=== PATIENT | female | born 1965 | race Caucasian/White ===

== ENCOUNTER → 2017-06-03 08:48 | Outpatient (POV) | payer BC, SELFPAY | PROVIDERS: Visit Provider Internal Medicine | DX: Z00.00 Encounter for general adult medical examination without abnormal findings (principal) ==

== ENCOUNTER → 2017-07-10 09:51 | Outpatient (CLI) | payer BC, SELFPAY ==
[2017-07-10 11:04] VITALS: PULSE 76
[2017-07-10 11:37] VITALS: BP 95/67; PULSE 81; RESP 16; O2SAT 98
[2017-07-10 11:38] VITALS: BP 108/69; PULSE 97; RESP 20; O2SAT 95
== END ==
PROVIDERS: PCP Nurse Practitioner; Visit Provider Internal Medicine
DX: J96.12 Chronic respiratory failure with hypercapnia (principal); J44.9 Chronic obstructive pulmonary disease, unspecified
CPT/HCPCS: 94060; 94618; 94640; 94726; 94729

== ENCOUNTER 2017-07-22 10:02 | Outpatient (RCR) | payer BC, SELFPAY | END 2017-07-22 10:03 | disposition home or self-care (01) | LOC: PT 10:02 | PROVIDERS: PCP Nurse Practitioner; Visit Provider Nurse Practitioner Family | DX: J44.9 Chronic obstructive pulmonary disease, unspecified (principal) | CPT/HCPCS: G0424 ==

== ENCOUNTER 2017-12-17 11:27 | Outpatient (RCR) | payer BC, SELFPAY | END 2017-12-17 11:28 | disposition home or self-care (01) | LOC: PT 11:27 | PROVIDERS: Visit Provider Orthopaedic Surgery | DX: S82.61XA Displaced fracture of lateral malleolus of right fibula, initial encounter for closed fracture (principal) | CPT/HCPCS: 97760 ==

== ENCOUNTER → 2017-12-31 09:47 | Outpatient (CLI) | payer BC, SELFPAY ==
--- NOTE | 2017-12-31 09:48 | XR_ITS ---
XR ankle RT min 3V Ordering Physician: Jan Fischer MD Patient Age: 52 years: Female HISTORY: ITS.REASON: fracture of lateral mallelous right ankle/ TECHNIQUE: 3 view right ankle COMPARISON :Fall. Injury. Follow-up from 12/15/2017 FINDINGS . We again see the fracture at tip of the lateral malleolus.. Mild avulsion of the tip of lateral malleolus yields trace 1.2 mm distraction at the fracture zone laterally. There is prominent soft tissue swelling again seen overlying the lateral malleolus.No significant change in position of fracture elements at lateral malleolus. Also question possible very subtle fracture at the lateral posterior corner of the talus. If desire further evaluation here CT or MR ankle may be of benefit Small plantar calcaneal spur 4.5 mm length IMPRESSION: Fracture to the lateral malleolus. Stable. Unchanged. Associated soft tissue swelling Question, suspect a very subtle fracture or osteochondral irregularity at the lateral dome of talus,, near lateral corner of talus. A desire further evaluation here CT or MRI would be warranted.
== END ==
PROVIDERS: PCP Nurse Practitioner; Visit Provider Orthopaedic Surgery
DX: S82.891A Other fracture of right lower leg, initial encounter for closed fracture (principal)
CPT/HCPCS: 73610

== ENCOUNTER → 2018-01-28 13:15 | Outpatient (CLI) | payer BC, SELFPAY ==
--- NOTE | 2018-01-28 13:17 | XR_ITS ---
XR ankle RT min 3V HISTORY: Follow-up fracture, pain ITS.REASON: fracture of lateral mallelous rt ankle/out of boot ORDERING PHYSICIAN: Latha Sanford MD PATIENT AGE: 52 years Comparison: 12/31/2017 FINDINGS: Avulsion fracture once again noted involving the tip of the lateral malleolus with mild distraction of the fracture fragments of 1 to 2 mm. Cortical irregularity once again noted involving the lateral aspect of the talus suggesting a nondisplaced fracture. This could be confirmed with CT if clinically warranted. There is also suggestion of a small avulsion fracture involving the medial aspect of the talus inferior to the tip of the medial malleolus. Mild osteoarthritic changes are present at the tibiotalar joint. IMPRESSION: Overall no change avulsion fracture of the tip of the lateral malleolus and medial aspect of the talus as well as possible nondisplaced fracture of the talar dome laterally
== END ==
PROVIDERS: PCP Nurse Practitioner; Visit Provider Orthopaedic Surgery
DX: S82.61XA Displaced fracture of lateral malleolus of right fibula, initial encounter for closed fracture (principal)
CPT/HCPCS: 73610

== ENCOUNTER → 2018-01-29 10:48 | Outpatient (CLI) | payer BC, SELFPAY ==
--- NOTE | 2018-01-29 10:49 | CA_ITS ---
PROCEDURE: 2-D M-mode and color Doppler study INDICATIONS FOR THE TEST: Chest pain COPD Heart Murmur Tobacco Smoking Palpitations Fatigue Syncope Edema Hypertension+Diabetes Mellitus Rheumatic Fever SOB CHERRY Obesity Hyperlipidemia + Family History HD Additional History PULMONARY HTN PATIENT INFORMATION HEIGHT: 63 WEIGHT:206 GENDER: Female B/P:106/65 2-D/M-MODE INTERPRETATION: 2-D MEASUREMENTS OBSERVED VALUES IN CMS Right Ventricular Dimension (RVDd) 2.3 Interventricular Septum (Thickness)(IVsd) 1.3 Left Ventricular Internal Dimensions(LVIDd) 5.2 Left Ventricular Posterior Wall (Thickness)(LVPWd) 0.9 Aortic Root 3.3 Aortic Cusp Separation 1.9 Left Atrial Dimensions (LAD) 3.8 2D 1. Left atrium is mildly enlarged, left ventricle is normal size, mild concentric left ventricular hypertrophy, visually estimated ejection fraction 55% with no regional wall motion abnormality. 2. The right atrium and right ventricle are normal size and contractility. 3. The aortic valve is minimally thickened and fibrosed. 4. The mitral and tricuspid valve are grossly normal. 5. The pulmonic valve is poorly visualized. 6. No significant pericardial effusion noted. DOPPLER INTERROGATION: Doppler interrogation of the aortic, mitral and tricuspid valvular presence of mild mitral and tricuspid regurgitation, tricuspid regurgitation jet velocity is inadequate for calculation of the right ventricular systolic pressure. Grade 1 diastolic dysfunction seen without tissue Doppler evidence of raised left atrial pressure. CONCLUSION: 1. Mildly enlarged left atrium, normal left ventricular size, mild concentric left ventricular hypertrophy, visually estimated ejection fraction of 55% with no regional wall motion abnormality. Grade 1 diastolic dysfunction seen without tissue Doppler evidence of raised left atrial pressure. 2. Mild mitral and tricuspid regurgitation 3. No significant pericardial effusion noted.
== END ==
PROVIDERS: PCP Nurse Practitioner; Visit Provider Internal Medicine Cardiovascular Disease
DX: E78.5 Hyperlipidemia, unspecified (principal); G47.33 Obstructive sleep apnea (adult) (pediatric); I11.9 Hypertensive heart disease without heart failure; I27.20 Pulmonary hypertension, unspecified; S82.61XA Displaced fracture of lateral malleolus of right fibula, initial encounter for closed fracture
CPT/HCPCS: 93306

== ENCOUNTER → 2018-04-07 13:13 | Outpatient (POV) | payer BC, MEDICARE, SELFPAY | PROVIDERS: Visit Provider Internal Medicine | DX: Z00.00 Encounter for general adult medical examination without abnormal findings (principal) ==

== ENCOUNTER → 2020-11-01 12:57 | Outpatient (CLI) | payer BC, SELFPAY ==
--- NOTE | 2020-11-01 14:28 | CT_ITS ---
PROCEDURE: CT LUNG SCREENING CLINICAL INDICATION: lung cancer screening COMPARISON: CT [facility]WO CT CHEST W/O CONTRAST from 09/25/2016 TECHNIQUE: The exam was performed on a GE Light Speed [address] scanner using 2.90 mGy CTDI. A low dose helical CT CHEST was performed on a multi-detector scanner. All CT scans at the facility use one or more dose reduction, viz: automated exposure control, ma/kV adjustment per patient size (including targeted exams where dose is matched to indication, i.e. head), or iterative reconstruction technique. The LDCT was performed in a facility that meets the criteria for the screening program. Data regarding this exam was submitted to ACR which is an approved registry. The order for this exam indicates that it came as a result of a lung cancer screening counseling shard decision-making visit that included all the elements required of such a visit including smoking cessation. The radiologist interpreting this exam meets the [facility] criteria for the LDCT lung cancer screening program. The exam is reported using the Lung-RADS classification scale and reported to the ACR registry. NOTE: This study was performed for the specific purposes of lung cancer screening and is not an alternative to diagnostic chest CT. RADIATION DOSE: CTDI vol(CT dose Index-volume) = 2.90mG DLP (Dose Length Product) = 95.86 mGcm FINDINGS: COPD changes. Scattered areas of scarring. Evidence of old granulomatous disease. 5 x 3 mm noncalcified nodule left upper lobe anteriorly 30 very slightly larger compared to the previous exam at approximately 4 x 2 mm. OTHER FINDINGS: Mild prominence of the left adrenal gland only slightly more prominent compared to the previous exam. IMPRESSION: Lung-RADS Category 3 Probably Benign regarding left upper lobe nodule which is very slightly increased in size. Suggest [address] follow-up. Follow-up: [address] Chest with contrast. Dictated by: Kike Gorman MD 11/06/2020 09:39 Kike Gorman MD in [place] 11/06/2020 09:39
[2020-11-03 09:32] LABS: Alpha-1-Antitrypsin 131 mg/dL (101-187)
== END ==
PROVIDERS: PCP Nurse Practitioner Family; Visit Provider Internal Medicine Pulmonary Disease
DX: Z87.891 Personal history of nicotine dependence (principal); Z12.2 Encounter for screening for malignant neoplasm of respiratory organs; R06.00 Dyspnea, unspecified
CPT/HCPCS: 36415; 71271; 82103; 94060; 94618; 94726; 94729

== ENCOUNTER → 2020-11-01 14:56 | Outpatient (CLI) | payer BC, SELFPAY | PROVIDERS: Visit Provider Internal Medicine Pulmonary Disease | DX: J44.9 Chronic obstructive pulmonary disease, unspecified (principal) | CPT/HCPCS: 36415; 82103 ==

== ENCOUNTER → 2021-04-16 09:27 | Outpatient (CLI) | payer BC, SELFPAY ==
[2021-04-16 09:53] LABS: Basophils # 0.1 K/mm3 (0-0.2); Basophils % 1.1 % (0.1-2.0); Eosinophils # 0.1 K/mm3 (0.0-0.4); Eosinophils % 0.8 % (0.1-12.0); Hematocrit 49.8 % (37.0-47.0); Hemoglobin 15.7 g/dL (12.2-16.2); Lymphocytes # 1.6 K/mm3 (0.7-4.5); Lymphocytes % 17.5 % (10-50); Mean Corpuscular HGB Conc 31.4 g/dL (31.8-35.4); Mean Corpuscular Hemoglobin 32.5 pg (27.0-31.2); Mean Corpuscular Volume 103.4 fl (81-99); Mean Platelet Volume 8.1 fl (7.4-10.4); Monocytes # 0.4 K/mm3 (0.1-1.0); Monocytes % 4.4 % (1.7-9.3); Neutrophils # 6.7 K/mm3 (1.8-7.8); Neutrophils % 76.1 % (37.0-80.0); Platelet Count 307 K/mm3 (142-424); Red Blood Count 4.82 M/mm3 (4.20-5.40); Red Cell Distribution Width 13.8 % (11.5-17.5); White Blood Count 8.8 K/mm3 (4.8-10.8)
[2021-04-16 10:29] LABS: Alanine Aminotransferase 52 U/L (12-78); Albumin Level 4.8 g/dl (3.5-5.0); Alkaline Phosphatase 56 U/L (38-126); Anion Gap 13.4 mEq/L (5-15); Aspartate Amino Transferase 45 U/L (14-36); Bilirubin,Direct 0.1 mg/dl (0.0-0.4); Bilirubin,Indirect 0.3 mg/dL (0.0-0.9); Bilirubin,Total 0.4 mg/dl (0.2-1.3); Bilirubin,Unconjugated 0.3 mg/dL (0.0-1.1); Blood Urea Nitrogen 19 mg/dl (7-17); Calcium 9.9 mg/dl (8.4-10.2); Carbon Dioxide 37 mmol/L (22.0-30.0); Chloride 95 mmol/L (98-107); Chol/HDL Ratio 2.2 (1-3.5); Cholesterol 217 mg/dl (140-200); Estimated Glomerular Filt Rate 87 ml/min (>60); GFR (African American) 105 ML/MIN (>60); Glucose 106 mg/dl (74-100); HDL Cholesterol 98 mg/dl (40-60); Potassium 4.4 mmoL/L (3.5-5.1); Sodium 141 mmol/L (136-145); Total Protein,Serum 7.2 g/dl (6.3-8.2); Triglycerides 67 mg/dl (30-150); VLDL Cholesterol 13 mg/dL (0-40)
[2021-04-16 10:40] LABS: Direct LDL Cholesterol 111.25 mg/dL (100-129)
[2021-04-16 10:46] LABS: Free T4 (Free Thyroxine) 1.16 ng/dl (0.78-2.19)
[2021-04-16 11:00] LABS: Thyroid Stimulating Hormone 1.07 uIU/mL (0.465-4.68)
== END ==
PROVIDERS: PCP Family Medicine; Visit Provider Internal Medicine
DX: I27.20 Pulmonary hypertension, unspecified (principal); I11.9 Hypertensive heart disease without heart failure; E78.2 Mixed hyperlipidemia; G47.33 Obstructive sleep apnea (adult) (pediatric); Z99.89 Dependence on other enabling machines and devices
CPT/HCPCS: 36415; 80048; 80061; 80076; 84439; 84443; 85025

== ENCOUNTER → 2021-11-02 07:45 | Outpatient (CLI) | payer BC, SELFPAY ==
--- NOTE | 2021-11-02 07:45 | CT_ITS ---
FINAL REPORT TECHNIQUE: Axial images were obtained from the lung apex to the mid abdomen by computed tomography. This study was performed with techniques to keep radiation doses as low as reasonably achievable (ALARA). Individualized dose reduction techniques using automated exposure control or adjustment of mA and/or kV according to the patient's size were employed. CLINICAL HISTORY: lung cancer screening, former smoker, quit x 6 years ago, smoked 2 pks per day x 36 yrs COMPARISON: 11/01/2020 FINDINGS: CHEST CT LOW DOSE CTDI vol (mGy): 2.90 DLP (mGy-cm): 101.34 There is no axillary adenopathy. There is no hilar or mediastinal adenopathy. The heart is normal in size. There is no pericardial or pleural effusion. There are scattered calcified granulomas. There is mild emphysema and mild scarring. There is a 5 mm nodule in the anterior left upper lobe which is stable and best seen on image number 34. There is a stable 5 mm nodule in the posterior left lower lobe. No new mass or nodule is identified. Limited images of the upper abdomen of the head and upper demonstrate fatty infiltration of the liver. IMPRESSION: Nodules in the left upper and left lower lobes, stable. Lung RADS category 2. Recommend 12 month follow-up low-dose chest CT. Reviewed, Interpreted and Dictated by Mohan El III, MD Transcribed by Viri Garcia Authenticated and . [facility]
== END ==
PROVIDERS: PCP Family Medicine; Visit Provider Internal Medicine Pulmonary Disease
DX: Z87.891 Personal history of nicotine dependence (principal); Z12.2 Encounter for screening for malignant neoplasm of respiratory organs
CPT/HCPCS: 71271

== ENCOUNTER → 2022-04-15 09:20 | Outpatient (CLI) | payer BC, SELFPAY ==
[2022-04-15 10:08] LABS: Basophils % 0.3 % (0.1-2.0); Eosinophils # 0.1 K/mm3 (0.0-0.4); Eosinophils % 1.2 % (0.1-12.0); Hematocrit 40.1 % (37.0-47.0); Hemoglobin 12.6 g/dL (12.2-16.2); Lymphocytes % 27.6 % (10-50); Mean Corpuscular HGB Conc 31.5 g/dL (31.8-35.4); Mean Corpuscular Hemoglobin 31.3 pg (27.0-31.2); Mean Corpuscular Volume 99.4 fl (81-99); Monocytes # 0.4 K/mm3 (0.1-1.0); Monocytes % 5.4 % (1.7-9.3); Neutrophils # 4.7 K/mm3 (1.8-7.8); Neutrophils % 65.5 % (37.0-80.0); Platelet Count 367 K/mm3 (142-424); Red Blood Count 4.04 M/mm3 (4.20-5.40); Red Cell Distribution Width 13.1 % (11.5-17.5); White Blood Count 7.2 K/mm3 (4.8-10.8)
[2022-04-15 10:40] LABS: Chloride 101 mmol/L (98-107)
[2022-04-15 10:41] LABS: Potassium 4.6 mmoL/L (3.5-5.1); Sodium 139 mmol/L (136-145)
[2022-04-15 10:43] LABS: Alanine Aminotransferase 57 U/L (12-78); Albumin Level 4.1 g/dl (3.5-5.0); Alkaline Phosphatase 50 U/L (38-126); Anion Gap 7.6 mEq/L (5-15); Aspartate Amino Transferase 46 U/L (14-36); Bilirubin,Direct 0.2 mg/dl (0.0-0.4); Bilirubin,Indirect 0.1 mg/dL (0.0-0.9); Bilirubin,Total 0.3 mg/dl (0.2-1.3); Bilirubin,Unconjugated 0.1 mg/dL (0.0-1.1); Blood Urea Nitrogen 18 mg/dl (7-17); Carbon Dioxide 35 mmol/L (22.0-30.0); Cholesterol 218 mg/dl (140-200); Estimated Glomerular Filt Rate 86 ml/min (>60); GFR (African American) 104 ML/MIN (>60); Total Protein,Serum 6.8 g/dl (6.3-8.2); Triglycerides 78 mg/dl (30-150); VLDL Cholesterol 16 mg/dL (0-40)
[2022-04-15 10:44] LABS: Calcium 9.3 mg/dl (8.4-10.2); Chol/HDL Ratio 3.1 (1-3.5); Glucose 117 mg/dl (74-100); HDL Cholesterol 70 mg/dl (40-60); Magnesium 1.6 mg/dl (1.6-2.3)
[2022-04-15 10:55] LABS: Direct LDL Cholesterol 110.89 mg/dL (100-129)
[2022-04-15 11:01] LABS: Free T4 (Free Thyroxine) 0.91 ng/dl (0.78-2.19)
[2022-04-15 11:15] LABS: Thyroid Stimulating Hormone 1.28 uIU/mL (0.465-4.68)
== END ==
PROVIDERS: PCP Family Medicine; Visit Provider Nurse Practitioner
DX: I27.20 Pulmonary hypertension, unspecified (principal); I11.9 Hypertensive heart disease without heart failure; E78.2 Mixed hyperlipidemia; F17.210 Nicotine dependence, cigarettes, uncomplicated
CPT/HCPCS: 36415; 80048; 80061; 80076; 83735; 84439; 84443; 85025

== ENCOUNTER 2023-04-14 09:35 | Outpatient (CLI) | payer BC, SELFPAY ==
[2023-04-14 09:55] LABS: Basophils # 0.1 K/mm3 (0-0.2); Basophils % 0.8 % (0.1-2.0); Eosinophils # 0.1 K/mm3 (0.0-0.4); Eosinophils % 1.6 % (0.1-12.0); Hematocrit 43.6 % (37.0-47.0); Hemoglobin 14.4 g/dL (12.2-16.2); Lymphocytes # 1.5 K/mm3 (0.7-4.5); Lymphocytes % 23.8 % (10-50); Mean Corpuscular Hemoglobin 32.7 pg (27.0-31.2); Mean Platelet Volume 8.2 fl (7.4-10.4); Monocytes # 0.3 K/mm3 (0.1-1.0); Monocytes % 5.4 % (1.7-9.3); Neutrophils # 4.4 K/mm3 (1.8-7.8); Neutrophils % 68.4 % (37.0-80.0); Platelet Count 263 K/mm3 (142-424); Red Cell Distribution Width 13.1 % (11.5-17.5); White Blood Count 6.4 K/mm3 (4.8-10.8)
[2023-04-14 10:18] LABS: Alanine Aminotransferase 50 U/L (12-78); Albumin Level 4.4 g/dl (3.5-5.0); Alkaline Phosphatase 52 U/L (38-126); Anion Gap 11.9 mEq/L (5-15); Aspartate Amino Transferase 44 U/L (14-36); Bilirubin,Direct 0.5 mg/dl (0.0-0.4); Bilirubin,Total 0.5 mg/dl (0.2-1.3); Blood Urea Nitrogen 15 mg/dl (7-17); Calcium 9.8 mg/dl (8.4-10.2); Carbon Dioxide 36 mmol/L (22.0-30.0); Chloride 97 mmol/L (98-107); Chol/HDL Ratio 2.5 (1-3.5); Cholesterol 222 mg/dl (140-200); Estimated Glomerular Filt Rate 86 ml/min (>60); GFR (African American) 104 ML/MIN (>60); Glucose 118 mg/dl (74-100); HDL Cholesterol 90 mg/dl (40-60); Magnesium 1.6 mg/dl (1.6-2.3); Potassium 3.9 mmoL/L (3.5-5.1); Sodium 141 mmol/L (136-145); Total Protein,Serum 6.9 g/dl (6.3-8.2); Triglycerides 108 mg/dl (30-150); VLDL Cholesterol 22 mg/dL (0-40)
[2023-04-14 10:48] LABS: Thyroid Stimulating Hormone 0.96 uIU/mL (0.465-4.68)
[2023-04-14 10:50] LABS: Free T4 (Free Thyroxine) 1.06 ng/dl (0.78-2.19)
== END 2023-04-14 23:59 ==
LOC: LAB 09:36
PROVIDERS: PCP Family Medicine; Visit Provider Nurse Practitioner
DX: R06.09 Other forms of dyspnea (principal); I27.20 Pulmonary hypertension, unspecified; I10 Essential (primary) hypertension; E78.5 Hyperlipidemia, unspecified; Z79.899 Other long term (current) drug therapy
CPT/HCPCS: 36415; 80048; 80061; 80076; 83735; 84439; 84443; 85025

== ENCOUNTER 2023-05-02 13:20 | Outpatient (CLI) | payer BC, SELFPAY ==
--- NOTE | 2023-05-02 13:22 | CA_ITS ---
APPROVED REPORT EXAM: Comprehensive 2D, Doppler, and color-flow Echocardiogram Spreading Machine Operator: Shavonne Magana RDCS Ht: 5 ft 3 in Wt: 218lbs BSA: 2.01 BP: 136/76 mmHg Indications: SOA,PHTN,HTN,HLP M-Mode Dimensions RVDd 3.30 cm (0.9-2.6) LA Diam 3.27 cm (1.9-4.0) LVDd 5.19 cm (3.5-5.7) LVDs 3.46 cm (3.5-5.7) IVSd 0.85 cm (0.6-1.1) PWd 0.72 cm (0.6-1.1) EF (Teich) 61.60% FS 33.30% EDV (Teich) 128.90 mL ESV (Teich) 49.50 mL LV Diastology E Decel Time 150 (160-240 msec) E/A Ratio 1.0 Aortic Valve ITALO Index 1.07 cm2/m2 AoV Peak Nic. 165.0 (50-130 cm/s) AO Peak GR. 10.80 mmHg AO Mean GR. 5.30 (<5 mmHg) AO VTI 26.6 (18-25 cm) ITALO (VTI) 2.20 (2.5-4.5 cm2) Mitral Valve MV E Max Nic. 85.0 (40-130 cm/s) MV A Velocity 89.0 (40-130 cm/s) E/A Ratio 0.96 MV PHT 44.0 ms Left Ventricle The left ventricle is normal size. The left ventricular systolic function is normal. The left ventricular ejection fraction is within the normal range. There is normal left ventricular wall thickness. The septum is asynchronous. LVEF is 55%. Right Ventricle Right ventricle is moderately dilated. Right ventricle is mildly hypokinetic. There is increased RV wall thickness. Atria The left atrium size is normal. The right atrium is mildly dilated. The interatrial septum is not well-visualized. Aortic Valve The aortic valve opens well. There is no aortic valvular stenosis. No aortic regurgitation is present. Mitral Valve The mitral valve is normal in structure. There is no mitral valve regurgitation noted. Tricuspid Valve The tricuspid valve leaflets are thin and pliable. Trace tricuspid regurgitation. There is insufficient TR jet to estimate RVSP. Pulmonic Valve The pulmonary valve is normal in structure. Trace pulmonic regurgitation. Great Vessels The aortic root is not well-visualized. IVC is normal in size and collapses >50% with inspiration. Pericardium Trivial pericardial effusion. Other Information Study Quality: Fair Conclusion Normal LV systolic function. Moderate RV dilation with mild reduction in RV function. No significant valvular stenosis or regurgitation. Trivial pericardial effusion. When visually compared to the prior study from 2018, the RV size and function are grossly similar. Electronically signed by : Vanesa Daigle MD 05/06/2023 12:26:21
== END 2023-05-02 23:59 ==
LOC: RT 13:22
PROVIDERS: PCP Family Medicine; Visit Provider Nurse Practitioner
DX: R06.09 Other forms of dyspnea (principal); I10 Essential (primary) hypertension; E78.5 Hyperlipidemia, unspecified; I27.20 Pulmonary hypertension, unspecified; Z87.891 Personal history of nicotine dependence
CPT/HCPCS: 93306

== ENCOUNTER 2023-05-13 07:17 | Outpatient (CLI) | payer BC, SELFPAY ==
--- NOTE | 2023-05-13 07:17 | CT_ITS ---
FINAL REPORT TECHNIQUE: Thin section axial images were obtained through the lungs using a low-dose technique per lung cancer screening protocol. Reconstruction images were obtained using the axial data. Exam was performed using dose reduction technique. CLINICAL HISTORY: lung cancer screening former smoker, quit 7 years ago, smoked 2 ppd x 30 years COMPARISON: 11/02/2021 FINDINGS: CTDLvol: 2.9 DLP: 96.38 Former smoker, 58-year-old female, quit 7 years ago 60 pack year history Lungs: Mild changes of emphysema are once again noted. The 5 mm nodule seen in the anterior left upper lobe on the prior CT remains present and is stable in appearance, best seen on image #34. The 5 mm posterior left lower lobe nodule seen on the prior CT is also stable in appearance. No new nodules or masses are identified. Lymph nodes: No thoracic lymphadenopathy. Mediastinum: Heart size is normal. Pleura/pericardium: No pleural or pericardial effusion. Other: No acute abnormality in the upper abdomen. IMPRESSION: Nodule in the left upper lobe, another in the left lower lobe, stable since the prior CT. Lung RADS: 2 Recommendation: 12-month follow-up LDCT Reviewed, Interpreted and Dictated by Lenka Lockhart MD Transcribed by Mitra Miranda Authenticated and . [facility]
== END 2023-05-13 23:59 ==
LOC: RAD 07:17
PROVIDERS: PCP Family Medicine; Visit Provider Internal Medicine Pulmonary Disease
DX: F17.210 Nicotine dependence, cigarettes, uncomplicated (principal); Z12.2 Encounter for screening for malignant neoplasm of respiratory organs
CPT/HCPCS: 71271

== ENCOUNTER 2023-05-19 12:40 | Outpatient (CLI) | payer MEDICARE, BC, SELFPAY ==
[2023-05-19 13:30] VITALS: PULSE 86; PULSE 90
[2023-05-19] MEDS: ALBUTEROL 0.083% 2.5 MG/3 ML NEB IH (13:30)
== END 2023-05-19 23:59 | disposition home or self-care (01) ==
PROVIDERS: PCP Family Medicine; Visit Provider Internal Medicine Pulmonary Disease
DX: R06.09 Other forms of dyspnea (principal); J44.9 Chronic obstructive pulmonary disease, unspecified
CPT/HCPCS: 94060; 94618; 94640; 94726; 94729

== ENCOUNTER 2024-04-14 09:03 | Outpatient (CLI) | payer MEDICARE, BC, SELFPAY ==
[2024-04-14 09:50] LABS: Basophils % 0.5 % (0.1-2.0); Eosinophils # 0.1 K/mm3 (0.0-0.4); Hematocrit 42.1 % (37.0-47.0); Hemoglobin 13.7 g/dL (12.2-16.2); Lymphocytes # 1.2 K/mm3 (0.7-4.5); Mean Corpuscular HGB Conc 32.5 g/dL (31.8-35.4); Mean Corpuscular Hemoglobin 31.6 pg (27.0-31.2); Mean Corpuscular Volume 97.2 fl (81-99); Mean Platelet Volume 9.6 fl (7.4-10.4); Monocytes # 0.6 K/mm3 (0.1-1.0); Monocytes % 8.6 % (1.7-9.3); Neutrophils # 4.5 K/mm3 (1.8-7.8); Neutrophils % 69.6 % (37.0-80.0); Platelet Count 265 K/mm3 (142-424); Red Blood Count 4.33 M/mm3 (4.20-5.40); Red Cell Distribution Width 12.5 % (11.5-17.5); White Blood Count 6.5 K/mm3 (4.8-10.8)
[2024-04-14 10:41] LABS: Hemoglobin A1C 5.4 % (4.0-6.0)
[2024-04-14 10:56] LABS: Albumin Level 4.1 g/dl (3.5-5.0); Chloride 96 mmol/L (98-107); Potassium 3.8 mmoL/L (3.5-5.1); Sodium 141 mmol/L (136-145)
[2024-04-14 10:59] LABS: Alanine Aminotransferase 46 U/L (12-78); Alkaline Phosphatase 55 U/L (38-126); Anion Gap 12.8 mEq/L (5-15); Aspartate Amino Transferase 41 U/L (14-36); Bilirubin,Direct 0.1 mg/dl (0.0-0.4); Bilirubin,Indirect 0.4 mg/dL (0.0-0.9); Bilirubin,Total 0.5 mg/dl (0.2-1.3); Bilirubin,Unconjugated 0.4 mg/dL (0.0-1.1); Blood Urea Nitrogen 13 mg/dl (7-17); Calcium 9.3 mg/dl (8.4-10.2); Carbon Dioxide 36 mmol/L (22.0-30.0); Cholesterol 203 mg/dl (140-200); Estimated Glomerular Filt Rate 86 ml/min (>60); GFR (African American) 104 ML/MIN (>60); Glucose 121 mg/dl (74-100); Magnesium 1.1 mg/dl (1.6-2.3); Total Protein,Serum 6.8 g/dl (6.3-8.2); Triglycerides 128 mg/dl (30-150); VLDL Cholesterol 26 mg/dL (0-40)
[2024-04-14 11:00] LABS: Chol/HDL Ratio 2.2 (1-3.5); HDL Cholesterol 92 mg/dl (40-60)
[2024-04-14 11:29] LABS: Thyroid Stimulating Hormone 1.04 uIU/mL (0.465-4.68)
== END 2024-04-14 23:59 | disposition home or self-care (01) ==
PROVIDERS: PCP Family Medicine; Visit Provider Physician Assistant
DX: R06.09 Other forms of dyspnea (principal); I27.20 Pulmonary hypertension, unspecified; E78.2 Mixed hyperlipidemia; I10 Essential (primary) hypertension; Z13.1 Encounter for screening for diabetes mellitus
CPT/HCPCS: 36415; 80048; 80061; 80076; 83036; 83735; 84439; 84443; 85025

== ENCOUNTER 2024-05-14 15:21 | Outpatient (CLI) | payer MEDICARE, BC, SELFPAY ==
--- NOTE | 2024-05-14 15:22 | CT_ITS ---
FINAL REPORT TECHNIQUE: Axial CT without IV contrast administration using low dose protocol. This study was performed with techniques to keep radiation doses as low as reasonably achievable, (ALARA). Individualized dose reduction techniques using automated exposure control or adjustment of mA and/or kV according to the patient's size were employed. CLINICAL HISTORY: lung cancer screening quit 8 yrs ago 2 ppd x 30 yrs has copd COMPARISON: 05/13/2023 FINDINGS: CT CHEST LOW DOSE SCREENING DOSE: CTDI vol: 2.90 mGy, DLP: 97.68 mGy*cm No acute lung disease is present. The previously described 5 mm left upper lobe nodule posteriorly is calcified on current exam compatible with benign granuloma. There is a small, 4 x 2 mm nodule in the anterior left upper lobe on image 37, less pronounced than previous. There is a 3 mm subpleural nodule in the posterior left lower lobe seen on image 56 of series 3. Note is made of emphysema. No pleural or pericardial effusion is seen. No adenopathy or mass lesion is present. IMPRESSION: Benign nodules without evidence of neoplasm. LUNG RADS CATEGORY 2 RECOMMENDATION: 12 month LDCT follow up Reviewed, Interpreted and Dictated by Britney Bettencourt MD Transcribed by Viri Garcia Authenticated and [facility]
== END 2024-05-14 23:59 | disposition home or self-care (01) ==
LOC: RAD 15:22
PROVIDERS: PCP Family Medicine; Visit Provider Internal Medicine Pulmonary Disease
DX: F17.210 Nicotine dependence, cigarettes, uncomplicated (principal)
CPT/HCPCS: 71271

== ENCOUNTER → 2024-06-17 12:39 | Outpatient (CLI) | payer MEDICARE, BC, SELFPAY | PROVIDERS: Visit Provider Internal Medicine Pulmonary Disease | DX: G47.33 Obstructive sleep apnea (adult) (pediatric) (principal) | CPT/HCPCS: 94762 ==

== ENCOUNTER 2024-12-02 09:36 | Outpatient (CLI) | payer MEDICARE, BC, SELFPAY ==
--- OUTSIDE RECORDS SUMMARY | 2024-12-02 09:39 | XMS_ITS | Clinical Summary ---
Author Organization Healthcare Address [address] [id number] Care Team Providers Care Seed Collector Name Role Phone Estrellita Osborne APRN Primary Care Provider [phone] Family History Medical History Relation Name Comments Cardiac disorder Other 1 Cardiac disorder Other 2 Relation Name Status Comments Other 1 Other 2 Social History Tobacco Use Types Packs/Day Years Used Date Smoking Tobacco: Former Comments Unknown Sex and Gender Information Value Date Recorded Sex Assigned at Not on file Legal Sex Female 5:56 PM EDT Gender Identity Not on file Sexual Orientation Not on file Last Filed Vital Signs Vital Sign Reading Time Taken Comments Blood Pressure 91/67 04/09/2019 12:54 PM EST Pulse 76 04/09/2019 12:54 PM EST Temperature 36.7 C (98.1 F) 04/09/2019 12:54 PM EST Respiratory Rate 16 04/07/2018 1:20 PM EST Oxygen Saturation - - Inhaled Oxygen Concentration - - Weight 100 kg (220 lb 6 oz) 04/09/2019 12:54 PM EST Height 160 cm (5' 3 ) 04/09/2019 12:54 PM EST Body Mass Index 39.04 04/09/2019 12:54 PM EST Plan of Treatment Not on file Care Teams Seed Collector Relationship Specialty Start Date End Date Estrellita Osborne APRN [address] [place] [id number] PCP - General 07/28/20
[2024-12-02] MEDS: ALBUTEROL 0.083% 2.5 MG/3 ML NEB IH (10:10)
--- NOTE | 2024-12-02 10:10 | PC.NURSE ---
Pre and Post Spirometry completed without incident. Albuterol 0.083% given via HHN, per written protocol, Pt tolerated tx well.
== END 2024-12-02 23:59 | disposition home or self-care (01) ==
LOC: RT 09:37
PROVIDERS: PCP Nurse Practitioner; Visit Provider Internal Medicine Pulmonary Disease
DX: J44.9 Chronic obstructive pulmonary disease, unspecified (principal); R94.2 Abnormal results of pulmonary function studies
CPT/HCPCS: 94010